=== PATIENT | female | born 1990 | race African-American/Black ===

== ENCOUNTER 2021-05-29 15:04 | Emergency (ER) | payer SELFPAY ==
[~2021-05-29] VITALS: Ht 142.2 cm; Wt 68.0 kg
[2021-05-29] MEDS ORDERED: METHYLPREDNISOLONE SOD SUCC 125 MG/2ML VIAL ONE (15:24)
[2021-05-29] MEDS ORDERED: SODIUM CHLORIDE 0.9% 1000ML 1,000 ML ONE (15:25)
[2021-05-29] MEDS ORDERED: MAGNESIUM SULFATE 2GM/50ML 50 ML IV ONE ×2 (15:25→15:30)
[2021-05-29] MEDS ORDERED: SODIUM CHLORIDE 0.9% 1000ML 1,000 ML IV SCH (15:30)
[2021-05-29] MEDS ORDERED: METHYLPREDNISOLONE SOD SUCC 125 MG/2ML VIAL IV ONE (15:30)
[2021-05-29] MEDS ORDERED: ALBUTEROL/IPRATROPIUM 3 ML NEB NEB ONE ×2 (15:30)
[2021-05-29] MEDS ORDERED: PROVENTIL HFA6.7 GM INH (15:59)
[2021-05-29] MEDS ORDERED: VENTOLIN HFA18 GM INH (17:34)
[2021-05-29] MEDS ORDERED: PREDNISONE20 MG PO (17:36)
[2021-05-29] MEDS ORDERED: ALBUTEROL2.5 MG/3 M INH (17:45)
[2021-05-29] MEDS ORDERED: BROMPHENIR-PSE118 ML PO (17:47)
== END 2021-05-29 17:58 | disposition home or self-care (01) ==
LOC: FSED 15:17
DX: R05.9 Cough, unspecified (principal); J45.901 Unspecified asthma with (acute) exacerbation; J06.9 Acute upper respiratory infection, unspecified; R06.00 Dyspnea, unspecified
CPT/HCPCS: 71046; 80053; 81025; 85025; 96374; 99284; J2930; J3475; J7030

== ENCOUNTER 2021-07-17 15:27 | Emergency (ER) | payer SELFPAY ==
[~2021-07-17] VITALS: Ht 142.2 cm; Wt 68.0 kg
[~2021-07-17 15:27] MED LIST: ALBUTEROL2.5 MG/3 M INH; BROMPHENIR-PSE118 ML PO; PREDNISONE20 MG PO; PROVENTIL HFA6.7 GM INH; VENTOLIN HFA18 GM INH
[2021-07-17] MEDS ORDERED: ALBUTEROL/IPRATROPIUM 3 ML NEB ONE (16:05)
[2021-07-17] MEDS ORDERED: ALBUTEROL/IPRATROPIUM 3 ML NEB NEB ONE (16:15)
[2021-07-17] MEDS ORDERED: METHYLPREDNISOLONE SOD SUCC 125 MG/2ML VIAL IV ONE (16:15)
[2021-07-17] MEDS ORDERED: SODIUM CHLORIDE 0.9% 1000ML 1,000 ML IV ONE (16:15)
[2021-07-17] MEDS ORDERED: SODIUM CHLORIDE 0.9% 1000ML 1,000 ML ONE (16:18)
[2021-07-17] MEDS ORDERED: METHYLPREDNISOLONE SOD SUCC 125 MG/2ML VIAL ONE (16:18)
[2021-07-17] MEDS ORDERED: VENTOLIN HFA18 GM INH (16:55)
[2021-07-17] MEDS ORDERED: ADVAIR 500/501 EA INH (16:58)
[2021-07-17] MEDS ORDERED: PREDNISONE20 MG PO (16:59)
== END 2021-07-17 17:17 | disposition home or self-care (01) ==
LOC: FSED 15:52
DX: J45.901 Unspecified asthma with (acute) exacerbation (principal); F17.210 Nicotine dependence, cigarettes, uncomplicated
CPT/HCPCS: 99283; J2930; J7030

== ENCOUNTER 2022-04-23 15:24 | Emergency (ER) | payer SELFPAY ==
[~2022-04-23] VITALS: Ht 142.2 cm; Wt 68.0 kg
[~2022-04-23 15:24] MED LIST changes: +ADVAIR 500/501 EA INH
[2022-04-23] MEDS ORDERED: ALBUTEROL/IPRATROPIUM 3 ML NEB NEB ONE (16:45)
[2022-04-23] MEDS ORDERED: METHYLPREDNISOLONE SOD SUCC 125 MG/2ML VIAL IV ONE (16:45)
[2022-04-23] MEDS ORDERED: ALBUTEROL SULF 0.083% NEB SOLN 3 ML NEB NEB STA (17:26)
[2022-04-23] MEDS ORDERED: PROAIR DIGIHAL90 MCG PO (17:32)
[2022-04-23] MEDS ORDERED: PREDNISONE50 MG PO (17:32)
[2022-04-23] MEDS ORDERED: AEROECLIPSE II1 EACH PO (17:33)
[2022-04-23] MEDS ORDERED: ALBUTEROL SULF 0.083% NEB SOLN 3 ML NEB ONE (17:52)
== END 2022-04-23 18:07 | disposition home or self-care (01) ==
LOC: ER 15:30
DX: J45.901 Unspecified asthma with (acute) exacerbation (principal); R05.9 Cough, unspecified
CPT/HCPCS: 99284; J2930